=== PATIENT | female | born 1970 | race Caucasian/White ===

== ENCOUNTER → 2018-01-03 13:26 | Outpatient (CLI) | payer OTHER, SELFPAY ==
--- NOTE | 2018-01-03 13:35 | CT_ITS ---
CT abdomen pelvis wo con CLINICAL INDICATION: Right flank pain with hematuria and fever ITS.REASON: UTI W/O HEMATURIA ORDERING PHYSICIAN: Rj Hare MD PATIENT AGE: 47 years COMPARISON: None TECHNIQUE: Axial images obtained with sagittal and coronal reformats. PROCEDURE: Oral Contrast: None IV Contrast: None . FINDINGS: No acute finding in the lower chest. The liver, spleen, adrenal glands, and pancreas have an unremarkable unenhanced appearance. There has been prior cholecystectomy without ductal dilatation No renal calculi or ureteral calculi or hydronephrosis evident. There is a retroaortic left renal vein as a normal variant. Small lymph nodes are present in the retroperitoneum. The urinary bladder has an unremarkable appearance. No bladder stones evident. No intestinal obstruction or free air. Reported prior appendectomy. No evidence of diverticulitis. No pelvic mass or abnormal fluid collection. Bilateral tubal ligation. No focal inflammatory change of the pelvis. Gas present in the vagina consistent with on. No acute bony anomalies. IMPRESSION: 1. No acute finding. 2. No renal/ureteral calculi or hydronephrosis
== END ==
PROVIDERS: PCP Internal Medicine Adolescent Medicine; Visit Provider Family Medicine
DX: N39.0 Urinary tract infection, site not specified (principal)
CPT/HCPCS: 74176

== ENCOUNTER → 2023-02-17 13:51 | Outpatient (CLI) | payer OTHER, SELFPAY ==
--- NOTE | 2023-02-17 14:05 | XR_ITS ---
FINAL REPORT CLINICAL HISTORY: rt shoulder pain FINDINGS: RIGHT SHOULDER 3 views of the right shoulder were obtained. There is no acute fracture or dislocation. There are mild degenerative changes of the acromioclavicular and glenohumeral joints.. There is no soft tissue abnormality. IMPRESSION: Mild degenerative changes of the acromioclavicular and glenohumeral joints. Reviewed, Interpreted and Dictated by Ronny Bustos III, MD Transcribed by Nikki Raymundo Authenticated and [facility]
== END ==
PROVIDERS: PCP Family Medicine; Visit Provider Orthopaedic Surgery
DX: M25.511 Pain in right shoulder (principal)
CPT/HCPCS: 73030

== ENCOUNTER → 2023-03-04 08:00 | Outpatient (CLI) | payer OTHER, SELFPAY ==
--- NOTE | 2023-03-04 08:01 | MR_ITS ---
FINAL REPORT CLINICAL HISTORY: shoulder pain. felt a pop in shoulder 1 month ago. decreased rom. weakness in arm FINDINGS: Multiplanar MR imaging of the right shoulder was performed without contrast. There is supraspinatus tendinosis. There is a partial-thickness articular surface tear of the supraspinatus tendon involving 50% of the tendon thickness. There is a focal tear at the anterior footprint of the supraspinatus tendon, favor full-thickness. This is well seen on series 5, image 12. There is a small intrasubstance tear of the distal infraspinatus tendon involving less than 50% of the tendon thickness. 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 Spurring of the undersurface of the acromion is noted. A small amount of fluid is seen in the subacromial/subdeltoid bursa. There is labral degeneration with no definite labral tear identified. The long head of the biceps tendon is intact. A small glenohumeral joint effusion is seen. There is no evidence of fracture or dislocation. There is mild increased signal in the deltoid muscle worrisome for mild muscle injury. There is no evidence of soft tissue mass. IMPRESSION: Partial-thickness articular surface tear of the supraspinatus tendon involving 50% of the tendon thickness. Focal tear of the anterior footprint of the supraspinatus tendon, favor full-thickness. Supraspinatus tendinosis. Small intrasubstance tear of the distal infraspinatus tendon involving less than 50% of the tendon thickness. Findings worrisome for mild deltoid muscle injury. Reviewed, Interpreted and Dictated by Ronny Bustos III, MD Transcribed by Irene Soliman Authenticated and . [facility]
== END ==
PROVIDERS: PCP Family Medicine; Visit Provider Orthopaedic Surgery
DX: M25.811 Other specified joint disorders, right shoulder (principal)
CPT/HCPCS: 73221

== ENCOUNTER 2023-12-14 18:52 | Outpatient (CLI) | payer BC, SELFPAY ==
[2023-12-14 19:15] LABS: Alanine Aminotransferase 37 U/L (12-78); Albumin Level 4.4 g/dl (3.5-5.0); Albumin/Globulin Ratio 1.5 (1.1-1.8); Alkaline Phosphatase 110 U/L (38-126); Anion Gap 11.9 mEq/L (5-15); Aspartate Amino Transferase 27 U/L (14-36); Bilirubin,Total 0.4 mg/dl (0.2-1.3); Blood Urea Nitrogen 16 mg/dl (7-17); Calcium 9.8 mg/dl (8.4-10.2); Carbon Dioxide 28 mmol/L (22.0-30.0); Chloride 99 mmol/L (98-107); Estimated Glomerular Filt Rate 88 ml/min (>60); GFR (African American) 106 ML/MIN (>60); Glucose 283 mg/dl (74-100); Potassium 4.9 mmoL/L (3.5-5.1); Sodium 134 mmol/L (136-145); Total Protein,Serum 7.4 g/dl (6.3-8.2)
== END 2023-12-14 23:59 ==
LOC: LAB 18:53
PROVIDERS: PCP Family Medicine; Visit Provider Family Medicine
DX: M06.4 Inflammatory polyarthropathy (principal)
CPT/HCPCS: 80053

== ENCOUNTER 2023-12-16 07:48 | Outpatient (CLI) | payer SELFPAY ==
[2023-12-16 09:34] LABS: Hemoglobin A1C 9.4 % (4.0-6.0)
== END 2023-12-16 23:59 ==
PROVIDERS: PCP Family Medicine; Visit Provider Family Medicine
DX: R73.09 Other abnormal glucose (principal)
CPT/HCPCS: 83036

== ENCOUNTER 2024-05-23 12:20 | Outpatient (CLI) | payer BC, SELFPAY | END 2024-05-23 23:59 | disposition home or self-care (01) | LOC: LAB.DROPOF 05-24 12:20 | PROVIDERS: PCP Nurse Practitioner Family; Visit Provider Nurse Practitioner Family | DX: R39.9 Unspecified symptoms and signs involving the genitourinary system (principal) | CPT/HCPCS: 87086; 87088; 87186 ==

== ENCOUNTER 2025-10-17 08:45 | Outpatient (CLI) | payer BC, SELFPAY | END 2025-10-17 23:59 | disposition home or self-care (01) | LOC: LAB.DROPOF 10-18 14:14 | PROVIDERS: PCP Family Medicine; Visit Provider Nurse Practitioner Family | DX: R39.9 Unspecified symptoms and signs involving the genitourinary system (principal) | CPT/HCPCS: 87086; 87088; 87186 ==